=== PATIENT | female | born 2000 | race Caucasian/White ===

== ENCOUNTER 2023-06-27 08:37 | Outpatient (CLI) | payer SELFPAY ==
[2023-06-27] VITALS (9 sets, daily range): BP systolic 110–136; BP diastolic 65–89; PULSE 99–111; RESP 16; BMI 27.1
--- NOTE | 2023-06-27 13:29 | PM.OBGYHP ---
Providers/Chief Complaint Admitting Physician: Guevara Almonte MD Primary PROPERTY AND CASUALTY INSURANCE AGENT: none Primary Care Provider: none Chief Complaint: contractions HPI PROPERTY AND CASUALTY INSURANCE AGENT History of Present Illness 23 y.o. States her due date is today No care Has not had an ultrasound this Delivered three previous babies vaginally at home without any complications Started having UCs at home at 8 pm yesterday Was checked by a setter induction heating equipment at 3 a.m, was at 4 cm Presented here for exam States UCs now are less No bleeding, fluid leakage States has had no problems this Has not had any testing / labs / ultrasounds PMHx: none PSHx: none Meds: none NKDA Present Details : 4 Para: 3 Medications/Allergies Home Medications Medication Instructions Recorded Confirmed Last Taken Type No Known Home Medications 06/27/23 06/27/23 Unknown History Allergies Allergy/AdvReac Type Severity Reaction Status Date / Time No Known Allergies Allergy Verified 06/27/23 08:56 Vitals/I&O/Wt Last Vital Signs Pulse 105 H 06/27/23 11:21 Resp 16 06/27/23 11:21 BP 128/89 06/27/23 11:21 Weight last 48 hrs Weight 139 lb Physical Exam Narrative: Weight 139 lbs; 5? VS normal Comfortable Abd: soft, nontender Cervix: 4 cm / high (unchanged over three hours) External monitor: occasional UCs heart tracing good variability, + accelerations No decelerations Results Labs OB ([facility]): No Data to Display A&P Assessment and plan (1) : No care Term , according to patient Cervix at 4 cm Fetus reassuring Options of management discussed with patient Evaluate fetus with ultrasound Admit patient for labor augmentation Discharge patient for expectant management and spontaneous labor Patient wants to go home Plan discharge home Instructions / precautions given Return PRN (2) No care in current : see above Attestations Medical Necessity Statement*: patient with no care, presented for evaluation of labor, plan discharge home Coding Level of Care Code Acute Code for Chg Fwd Diagnoses Z34.90 No care in current O09.30 Time Spent (min) 30
== END 2023-06-27 11:20 | disposition home or self-care (01) ==
LOC: OBGYN 09:34 → OPOB 10:17 → OBGYN 10:36
PROVIDERS: Visit Provider Obstetrics & Gynecology
DX: O09.30 Supervision of pregnancy with insufficient antenatal care, unspecified trimester (principal); Z3A.00 Weeks of gestation of pregnancy not specified
CPT/HCPCS: 59025; 99211; G0379